=== PATIENT | male | born 1945 | race Caucasian/White ===

== ENCOUNTER 2025-05-19 07:17 | Outpatient (CLI) | payer OTHER ==
[2025-05-19 08:16] LABS: Estimated GFR - POC 76.0
== END 2025-05-19 07:18 | disposition home or self-care (01) ==
LOC: SCSMRI 07:17
DX: M51.362 Other intervertebral disc degeneration, lumbar region with discogenic back pain and lower extremity pain (principal); M47.816 Spondylosis without myelopathy or radiculopathy, lumbar region; M48.061 Spinal stenosis, lumbar region without neurogenic claudication; M43.16 Spondylolisthesis, lumbar region; M43.26 Fusion of spine, lumbar region; M48.05 Spinal stenosis, thoracolumbar region; M47.817 Spondylosis without myelopathy or radiculopathy, lumbosacral region; R93.7 Abnormal findings on diagnostic imaging of other parts of musculoskeletal system; Z98.890 Other specified postprocedural states
CPT/HCPCS: 36415; 72158; 82565